=== PATIENT | female | born 2000 | race Caucasian/White ===

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

== ENCOUNTER → 2021-02-07 | Outpatient (CLI) | payer BC, OTHER ==
[2021-02-08 11:16] LABS: C-PEPTIDE, SERUM 3.6 ng/mL (1.1-4.4); CREATININE, URINE 181.8 mg/dL (Not Estab.)
[2021-02-10 17:14] LABS: GAD-65 AUTOANTIBODY 332.8 U/mL (0.0-5.0)
== END ==
LOC: LAB 14:16
PROVIDERS: Nurse Practitioner Family
DX: E10.65 Type 1 diabetes mellitus with hyperglycemia (principal)
CPT/HCPCS: 82043; 82570; 82947; 83036; 84439; 84443; 84681; 86341

== ENCOUNTER → 2022-04-01 | Emergency (ER) | payer BC | END | disposition left against medical advice (07) | LOC: ER1 21:07 | DX: Z53.21 Procedure and treatment not carried out due to patient leaving prior to being seen by health care provider (principal) ==